=== PATIENT | male | born 1970 | race Caucasian/White ===

== ENCOUNTER 2018-12-26 17:39 | Emergency (ER) | payer OTHER, SELFPAY ==
[2018-12-26 17:44] VITALS: BP 202/99; PULSE 69; RESP 18; TEMP 37.3; O2SAT 98
--- NOTE | 2018-12-26 18:08 | ED.GENADULT ---
HPI - General Adult General Chief complaint: Hypertension Stated complaint: Extended period of High Blood Pressure Time Seen by Provider: 12/26/18 18:06 Source: patient Mode of arrival: Ambulatory Limitations: no limitations History of Present Illness HPI narrative: Patient is a 48-year-old male with known lower back issues. He states that during his last few visits with his primary provider he has had elevated blood pressure. He has never been diagnosed with hypertension. He is not currently on any medications for this. He states that since this time he has been taking his blood pressure at home. He states that for the past day or so his blood pressures have been elevated with systolics greater than 200. He denies any chest pain or shortness of breath or vision changes or headaches. He does state that his lower back is hurting. He is seeing specialists for this. Comes the emergency department today for evaluation because of the elevated blood pressure. Related Data Home Medications Medication Instructions Recorded Confirmed omeprazole 20 mg PO PRN PRN 12/26/18 12/26/18 Allergies Allergy/AdvReac Type Severity Reaction Status Date / Time No Known Drug Allergies Allergy Verified 12/26/18 17:47 Review of Systems Constitutional Constitutional: Denies fever(s) and Denies headache(s) ENT Ears, Nose, Mouth, and Throat: Denies headache(s) Cardiovascular Cardiovascular: Denies chest pain, Denies palpitations and Denies dyspnea Respiratory Respiratory: Denies cough and Denies dyspnea Gastrointestinal Gastrointestinal: Denies abdominal pain, Denies nausea and Denies vomiting Genitourinary Genitourinary: Denies dysuria Musculoskeletal Musculoskeletal: Reports back pain, Denies myalgias and Denies arthralgias Integumentary/Breasts Skin/Breast: Denies lesions and Denies rash Neurologic Neurologic: Denies behavioral changes and Denies headache(s) Psychiatric Psychiatric: Denies behavioral changes Endocrine Endocrine: Denies palpitations Hematologic/Lymphatic Hematologic/Lymphatic: Denies easy bleeding and Denies easy bruising [facility] Medical History Lower back pain (Acute) Social History Smoking Status: Never smoker Social History Smoking Status: Never smoker Exam Initial Vital Signs Initial Vital Signs: Vital Signs Temperature 99.1 F 09/23/19 17:44 Pulse Rate 69 12/26/18 17:44 Respiratory Rate 18 12/26/18 17:44 Blood Pressure 202/99 H 12/26/18 17:44 Pulse Oximetry 98 12/26/18 17:44 Const General: cooperative, well developed and well groomed Orientation: alert, awake and oriented x3 HENMT Head: normal to inspection and normocephalic Mouth: oral mucosae normal Resp Effort & Inspection: normal respiratory effort Auscultation: clear to auscultation bilaterally Cardio Rate: regular rate Rhythm: regular rhythm Pulses: radial pulses present GI Inspection: non-distended Palpation: soft Skin Lesions: no lesions Rashes: no rashes Neuro General: alert and awake Cognition: normal cognition Speech: speech normal Gait: normal gait Extrem General: normal to inspection and capillary refill normal Psych Appearance: grossly normal and well kempt Course Orders Ordered: ED Orders 12/26/18 17:55 Complete Blood Count AUTO DIFF Stat Comprehensive Metabolic Panel Stat Troponin & CK Cardiac Panel Stat 12/26/18 18:09 EKG-12 Lead Stat Vital Signs Vital signs: Vital Signs - 8 hr 12/26/18 18:11 12/26/18 19:18 Pulse Rate 89 66 Respiratory Rate 19 15 Blood Pressure 147/86 H Blood Pressure [Right Arm] 181/103 H Pulse Oximetry 94 96 Medical Decision Making Lab Data Lab results reviewed: Yes I reviewed the patient's lab results. Result diagrams: 12/26/18 17:55 12/26/18 17:55 Labs: Lab Results 12/26/18 12/26/18 Range/Units 17:55 17:55 WBC 8.0 (4.5-11.0) X10^3/uL RBC 4.25 L (4.5-5.9) X10^6/uL Hgb 13.7 (13.5-17.5) g/dL Hct 39.6 L (41-53) % MCV 93.0 (80-100) fL MCH 32.2 (26-34) PG MCHC 34.7 (30-36) % RDW 12.7 (11.6-14.8) % Plt Count 323 (150-400) X10^3/uL Neut % (Auto) 57.6 (50-75) % Lymph % (Auto) 32.1 (25-40) % [place] % (Auto) 8.8 (3-14) % Eos % (Auto) 0.6 L (2-4) % Baso % (Auto) 0.9 (0-2) % Neut # (Auto) 4600 (7063-3452) /uL Lymph # (Auto) 2600 (6469-1850) /uL [place] # (Auto) 700 (0-900) /uL Eos # (Auto) 0 (0-450) /uL Baso # (Auto) 100 (0-100) /uL Sodium 141 (137-145) mmol/L Potassium 3.7 (3.4-5.1) mmol/L Chloride 101 (98-107) mmol/L Carbon Dioxide 28 (22-32) mmol/L BUN 15 (9-20) mg/dL Creatinine 0.80 (0.66-1.25) mg/dL Estimated GFR > 60.0 (>60) mL/min BUN/Creatinine Ratio 18.8 (6-22) Glucose 99 (70-100) mg/dL Calcium 9.3 (8.4-10.2) mg/dL Total Bilirubin 0.8 (0.2-1.3) mg/dL AST 35 (17-59) IU/L ALT 50 (21-72) IU/L Alkaline Phosphatase 65 (38-126) U/L Total Creatine Kinase 142 (55-170) U/L CK-MB (CK-2) 4.39 H (<2.37) ng/mL CK-MB (CK-2) Rel Index 3.1 (1.5-5.0) % Troponin I < 0.012 (0.01-0.034) ng/mL Total Protein 7.9 (6.3-8.2) g/dL Albumin 4.7 (3.5-5.0) g/dL Globulin 3.2 (1.7-4.1) g/dL Albumin/Globulin Ratio 1.5 (1.0-2.8) ECG Data Attestation: I personally reviewed and interpreted this ECG as follows: Prior ECG tracings: not available for review Interpretation: Sinus rhythm Ventricular rate is 62 Normal axis LVH Normal QRS Normal QTC No ST T wave changes MDM Narrative Medical decision making narrative: Patient's blood pressure has improved since being here in the ER. He has no EKG changes. No signs of end-organ dysfunction from his hypertension. Hold on further workup for now. We discussed return precautions and follow-up instructions. He is going to take his blood pressure at home and talk with his primary provider. He expressed understanding and agreement with plan. Discharge Plan Departure Patient Disposition: Home Clinical Impression: Hypertension Qualifiers: Hypertension type: unspecified Qualified Code(s): I10 - Essential (primary) hypertension Discharge Date/Time: 12/26/18 19:21 Activity Restrictions/Additional Instructions: Continue your medications as directed. Keep all of your scheduled medical appointments. Take your blood Pressure at home like we discussed. Return to the ER for any new or worsening symptoms. Prescriptions: No Action omeprazole 20 mg Capsule,Delayed Release(Dr/Ec) 20 mg PO PRN PRN (Reason: Heartburn) RF: 0 Referrals: Blue Savage MD [Primary Care Provider] -
[2018-12-26 18:09] LABS: Add Manual Diff / Slide Review NO; Basophils Absolute Auto 100 /uL (0-100); Basophils Percent Auto 0.9 % (0-2); Eosinophils Absolute Auto 0 /uL (0-450); Eosinophils Percent Auto 0.6 % (2-4); Hematocrit 39.6 % (41-53); Hemoglobin 13.7 g/dL (13.5-17.5); Lymphocytes Absolute Auto 2600 /uL (1100-4500); Lymphocytes Percent Auto 32.1 % (25-40); Mean Corpuscular HGB Conc 34.7 % (30-36); Mean Corpuscular Hemoglobin 32.2 PG (26-34); Monocytes Absolute Auto 700 /uL (0-900); Monocytes Percent Auto 8.8 % (3-14); Neutrophils Absolute Auto 4600 /uL (1500-7000); Neutrophils Percent Auto 57.6 % (50-75); Platelet Count 323 X10^3/uL (150-400); Red Blood Cell Count 4.25 X10^6/uL (4.5-5.9); Red Cell Distribution Width 12.7 % (11.6-14.8)
[2018-12-26 18:11] VITALS: BP 181/103; PULSE 89; RESP 19; O2SAT 94
[2018-12-26 18:20] LABS: Alanine Aminotransferase 50 IU/L (21-72); Albumin 4.7 g/dL (3.5-5.0); Albumin Globulin Ratio 1.5 (1.0-2.8); Alkaline Phosphatase 65 U/L (38-126); Aspartate Aminotransferase 35 IU/L (17-59); BUN Creatinine Ratio 18.8 (6-22); Bilirubin Total 0.8 mg/dL (0.2-1.3); Blood Urea Nitrogen 15 mg/dL (9-20); Calcium 9.3 mg/dL (8.4-10.2); Carbon Dioxide 28 mmol/L (22-32); Chloride 101 mmol/L (98-107); Creatine Kinase 142 U/L (55-170); Estimated Glomerular Filt Rate > 60.0 mL/min (>60); Globulin 3.2 g/dL (1.7-4.1); Glucose 99 mg/dL (70-100); HEMOLYSIS 18 (0-50); Potassium 3.7 mmol/L (3.4-5.1); Sodium 141 mmol/L (137-145); Total Protein 7.9 g/dL (6.3-8.2)
[2018-12-26 18:32] LABS: Troponin I < 0.012 ng/mL (0.01-0.034)
[2018-12-26 18:35] LABS: CKMB % Relative Index 3.1 % (1.5-5.0); Creatine Kinase MB 4.39 ng/mL (<2.37)
[2018-12-26 19:18] VITALS: BP 147/86; PULSE 66; RESP 15; O2SAT 96
== END 2018-12-26 19:21 | disposition home or self-care (01) ==
PROVIDERS: Emergency Medicine; Emergency Provider Emergency Medicine; Family Provider Family Medicine; PCP Family Medicine
DX: I10 Essential (primary) hypertension (principal)
CPT/HCPCS: 36415; 80053; 82550; 82553; 84484; 85025; 93005; 93010; 99282; 99284

== ENCOUNTER → 2019-12-22 14:19 | Outpatient (CLI) | payer OTHER, SELFPAY ==
[2019-12-24 15:08] LABS: COVID19 Sendout Not Detected (Not Detect)
== END ==
PROVIDERS: Family Provider Family Medicine; PCP Family Medicine; Visit Provider Physician Assistant
DX: Z11.59 Encounter for screening for other viral diseases (principal)
CPT/HCPCS: 87635

== ENCOUNTER → 2020-07-24 11:02 | Outpatient (CLI) | payer OTHER, SELFPAY ==
[2020-07-24 13:46] LABS: COVID19 -Nasal RAPID Negative (Negative)
== END ==
PROVIDERS: Visit Provider Student in an Organized Health Care Education/Training Program
DX: Z20.822 Contact with and (suspected) exposure to COVID-19 (principal)
CPT/HCPCS: 87635

== ENCOUNTER 2020-07-26 14:57 | Day surgery (SDC) | payer OTHER, SELFPAY ==
--- NOTE | 2020-07-26 | PATH_ITS ---
[facility] Accession Number: [id number] . 01 Material submitted: . colon - SIGMOID COLON POLYP 6MM . 02 Diagnosis: Sigmoid Colon, Polyp, 6 MM, Biopsy: Polypoid granulation tissue consistent with inflammatory polyp. Negative for dysplasia and malignancy. [facility] 08/01/2020 1438 Local . 02 Electronically signed: . Shania Wan MD, Pathologist NPI- [id number] . 01 Gross description: . SIGMOID COLON POLYP 6MM: Received in formalin is 1 fragment(s) of fel[place], soft tissue measuring 0.3 x 0.3 x 0.2 cm submitted entirely in 1 cassette(s) /TRC 07/29/2020 1035 Local . 02 Pathologist provided ICD-10: K63.5 . 02 CPT . 626639 Performed at: 01 [facility] [address] [id number] MD Vern Heredia MD Phone: [phone] Performed at: 02 [facility] [place] [address] [place], [place] [id number] MD Shania Wan MD Phone: [phone]
--- NOTE | 2020-07-26 12:21 | PM.PREOP ---
Pre-operative Note COVID-19 COVID-19 status: Negative Result date/Date tested (Pos, Neg/Pending): 07/24/20 Interval Note History & Physical reviewed/Exam performed by Physician: Yes Changes to H&P: No ASA Class (for procedural sedation): II
--- NOTE | 2020-07-26 12:22 | P.OP.ENDO_ITS ---
Operative Date/Time/Diagnoses Date of procedure: 07/26/20 Procedure Notes SCOAP/Timeout: 4:19 p.m. Procedure in detail: ENDOSCOPIST: Lisandra Palomares MD Sedation RN: Ale King RN Sedation start time: 4:20 p.m. Sedation end time: 5:08 p.m. PROCEDURE: Colonoscopy with targeted biopsy INDICATIONS: 1. Iron deficiency anemia 2. Screening for colon cancer MEDICATION: Levsin 0.125 mg sublingual, incremental doses of Versed and fentanyl until appropriate level sedation achieved. ASA CLASS: 2 CECAL WITHDRAWAL TIME: 29 minutes COMPLICATIONS: None. EXTENT OF PROCEDURE: Cecum. QUALITY OF PREP: Good with portions of liquid stool. PROCEDURE: Prior to insertion of the colonoscope, a digital rectal examination was accomplished with circumferential palpation of the distal rectal mucosa without significant findings being noted. The high-definition colonoscope was passed into the rectum in the usual fashion and advanced over to the cecum without difficulty. The ileocecal valve, appendiceal stoma, and medial wall all could be inspected and no abnormalities were seen. ASCENDING COLON: As the colonoscope was withdrawn, care was taken to expose and inspect the haustral folds and pancolonic diverticula noted throughout withdrawal. HEPATIC FLEXURE: Minor diverticulosis, otherwise, normal, no polyps or other abnormalities. TRANSVERSE COLON: Minor diverticulosis, otherwise, normal, no polyps or other abnormalities. DESCENDING COLON: Moderate diverticulosis, otherwise, normal, no polyps or other abnormalities. SIGMOID COLON: A 6 mm polyp was seen near the sites of 3 divericula, it appeared to be growing out of a diverticula. Methylene blue was used to lift the polyp and it did not lift completely. Decision was made not to remove the polyp secondary to risk of perforation. Targeted biopsy taken x1. [facility] ent x2 approximately 2 cm distal to the polyp on the medial and lateral alonzo. Otherwise, moderate diverticulosis. RECTUM: Normal. J maneuver was produced. There was no significant perianal disease. The J maneuver was broken. The remainder of the rectum was inspected and there was no external hemorrhoid disease. The scope was withdrawn. IMPRESSION: 1. Sigmoid polyp x1, 6 mm, possibly growing out of diverticula, non-lift sign with methylene blue, unresected, targeted biopsy taken x1 2. Pancolonic diverticulosis. PLAN: 1. Referral to GI for definitive removal of high risk polyp. 2. Follow-up in clinic status post pathology results. The possibility of a missed lesion including a malignancy has been discussed with the patient previously. Potential alarm symptoms have been discussed and should be reported immediately.
[2020-07-26] MEDS: LACTATED RINGERS 1,000 ML 200 ML IV (15:46)
[2020-07-26 15:51] VITALS: BP 140/80; PULSE 77; RESP 15; TEMP 36.4; O2SAT 98; BMI 25.3
[2020-07-26] MEDS: HYOSCYAMINE 0.125 MG TABLET PO (16:02)
[2020-07-26] MEDS: MIDAZOLAM 5 MG/5 ML VIAL IV (16:51)
[2020-07-26] MEDS: fentaNYL 250 MCG/5 ML INJ IV (16:57)
[2020-07-26] MEDS: METHYLENE BLUE 50 MG/10 ML VIAL INJ (17:09)
[2020-07-26 17:13] VITALS: BP 119/75; PULSE 58; RESP 11; TEMP 36.8; O2SAT 98
[2020-07-26 17:18] VITALS: BP 104/68; PULSE 64; RESP 9; O2SAT 98
[2020-07-26 17:23] VITALS: BP 108/69; PULSE 64; RESP 16; TEMP 36.8; O2SAT 96
[2020-07-26 17:28] VITALS: BP 122/79; PULSE 75; RESP 14; O2SAT 97
--- NOTE | 2020-07-26 17:28 | SUR.PHASEI ---
Dr. Palomares speaking to the patient. A&O, stable and comfortable.
[2020-07-26 17:44] VITALS: BP 122/80; PULSE 78; RESP 13; TEMP 36.7; O2SAT 98
== END 2020-07-26 17:46 | disposition home or self-care (01) ==
PROVIDERS: Referring Provider Student in an Organized Health Care Education/Training Program; Visit Provider Student in an Organized Health Care Education/Training Program
PROC: 0DJD8ZZ Inspection of Lower Intestinal Tract, Via Natural or Artificial Opening Endoscopic (ICD-10-PCS; CPT 45378; principal; 2020-07-26 16:00)
DX: D50.9 Iron deficiency anemia, unspecified (principal); K63.5 Polyp of colon; K57.30 Diverticulosis of large intestine without perforation or abscess without bleeding; I10 Essential (primary) hypertension; E78.5 Hyperlipidemia, unspecified
CPT/HCPCS: 45380; 45381; J2250; J3010; Q9968

== ENCOUNTER → 2021-02-18 17:07 | Outpatient (CLI) | payer OTHER, SELFPAY ==
[2021-02-18 18:18] LABS: COVID19 -Nasal RAPID Negative (Negative)
== END ==
PROVIDERS: Referring Provider Nurse Practitioner Family; Visit Provider Nurse Practitioner Family
DX: Z20.822 Contact with and (suspected) exposure to COVID-19 (principal)
CPT/HCPCS: 87635

== ENCOUNTER 2021-02-19 12:58 | Day surgery (SDC) | payer OTHER, SELFPAY ==
--- NOTE | 2021-02-19 | PATH_ITS ---
[facility] Accession Number: [id number] . 01 Material submitted: . duodenum - DUODENAL BIOPSY . 01 Clinical history: . A: R/O CELIAC . 02 Diagnosis: Duodenum, Biopsy: Duodenal mucosa with no diagnostic abnormality. Additional fragment of gastric body mucosa with no diagnostic abnormality. Negative for active inflammation, features of sprue, dysplasia, or malignancy. . MRV 02/21/2021 1114 Local . 02 Electronically signed: . Alfredo Bonilla MD, PhD, Pathologist NPI- [id number] . 01 Gross description: . DUODENAL BIOPSY: Received in formalin are 3 fragment(s) of felton, soft tissue measuring 0.1 x 0.1 x 0.1 cm to 0.3 x 0.2 x 0.2 cm submitted entirely in 1 cassette(s) /CHARLI 02/20/2021 0205 Local . 02 Pathologist provided ICD-10: R10.9, R19.4 . 02 CPT . 802134 Performed at: 01 [facility] [address], [place], [place] [id number] MD Vern Heredia MD Phone: [phone] Performed at: 02 [facility] [address] [place], [place] [id number] MD Shania Wan MD Phone: [phone]
[2021-02-19 13:14] VITALS: BP 149/87; PULSE 60; RESP 16; TEMP 36.2; O2SAT 99; BMI 26.1
[2021-02-19] MEDS: LACTATED RINGERS 1,000 ML 42 ML IV (13:28)
--- NOTE | 2021-02-19 13:30 | PM.PREOP ---
Pre-operative Note COVID-19 COVID-19 status: Negative Result date/Date tested (Pos, Neg/Pending): 02/19/21 Interval Note History & Physical reviewed/Exam performed by Physician: Yes Changes to H&P: No ASA Class (for procedural sedation): II
--- NOTE | 2021-02-19 13:31 | PM.OP.EGD ---
Operative Date/Time/Diagnoses Date of procedure: 02/19/21 Pre-op diagnosis: See indication and findings Procedure & Clinicians Study performed: EGD Indications: Iron deficiency anemia Surgeon: Mishel Nelson Procedure Notes Procedure in detail: After informed consent was obtained patient was placed in left lateral decubitus position. Video upper scope was placed into the oropharynx and with the patient's help swallowed into the esophagus. The esophagus stomach and duodenum were carefully examined. On withdrawal, retroflexed view the GE junction was performed. The scope was removed. The patient tolerated procedure well. Blood loss none Complications none Sedation mac Findings 1. Normal esophagus 2. Patchy gastric erythema biopsies taken to rule out Helicobacter 3. Normal duodenal bulb and sweep but with somewhat patchy appearance to the villous pattern. Biopsies taken to rule out celiac. Will await biopsy results and discuss the colonoscopy with Dr. Palomares
[2021-02-19 13:48] VITALS: BP 110/72; PULSE 69; RESP 16; TEMP 36.2; O2SAT 98
[2021-02-19 13:53] VITALS: BP 124/66; BP 124/86; PULSE 66; PULSE 68; RESP 16; O2SAT 95; O2SAT 98
[2021-02-19 13:58] VITALS: BP 132/81; PULSE 63; RESP 16; TEMP 36.6; O2SAT 97
[2021-02-19 14:11] VITALS: BP 140/89; PULSE 57; RESP 16; TEMP 36.5; O2SAT 98
== END 2021-02-19 14:22 | disposition home or self-care (01) ==
PROVIDERS: PCP Internal Medicine; Referring Provider Internal Medicine Gastroenterology; Visit Provider Internal Medicine Gastroenterology
PROC: 0DJ08ZZ Inspection of Upper Intestinal Tract, Via Natural or Artificial Opening Endoscopic (ICD-10-PCS; CPT 43235; principal; 2021-02-19 14:00)
DX: D50.9 Iron deficiency anemia, unspecified (principal); I10 Essential (primary) hypertension; E78.5 Hyperlipidemia, unspecified
CPT/HCPCS: 43239; J2704